=== PATIENT | female | born 1990 | race Hispanic/Latino ===

== ENCOUNTER 2016-05-29 15:41 | Outpatient (CLI) | payer MEDICAID ==
[2016-05-29] MEDS ORDERED: LACTATED RINGERS 500 ML IV ONE (16:48)
[2016-05-29] MEDS ORDERED: VISTARIL PO ONE (17:21)
[2016-05-29] MEDS ORDERED: BRETHINE SUB-Q ONE (19:27)
[2016-05-29] MEDS ORDERED: LACTATED RINGERS 1,000 ML ONE (20:31)
[2016-05-29 21:19] VITALS: BP 110/68
== END 2016-05-29 21:10 | disposition home or self-care (01) ==
LOC: TRG 15:41
PROVIDERS: ATTEND Obstetrics & Gynecology
DX: O47.9 False labor, unspecified (principal); Z3A.00 Weeks of gestation of pregnancy not specified
CPT/HCPCS: 96360; 96372; J3105; J7120; Q0177

== ENCOUNTER 2016-06-03 08:50 | Inpatient (IN) | payer MEDICAID ==
--- NOTE | 2016-06-02 13:03 | History and Physical Report ---
History of Present Illness Date of examination: 06/03/16 Chief complaint: scheduled section History of present illness: Pt is a 25 year old female [place] 06/23/16 at 37w1d who presents for scheduled section per [facility] recommendations to deliver her at 37-38 wks secondary to IUGR. She reports frequent contractions, but denies vaginal bleeding or leakage of fluid. She has had care at [facility] since transfer into care at 22 wks complicated by multiple episodes of contractions, intrauterine growth restriction, aortic insufficiency, depression/anxiety, tobacco abuse, genital herpes, and trichomonas infection that has not finesse adequately treated. She also desires tubal ligation for undesired fertility. She is GBS negative. Past History Past Medical History: heart disease (aortic insufficiency) Past Surgical History: LICSW/uterine surgery (LEEP, laparoscopy), tonsillectomy, section, D&C, other (eye surgery) LICSW History: abnormal PAP smear, herpes, trichomonas (diagnosed 05/26/16; inadequately treated) Family/Genetic History: diabetes, hypertension, stroke Social history: no significant social history, smoking - Obstetrical History Expected Date of Delivery: 06/23/16 Actual Gestation: 37 Week(s) 0 Day(s) : 4 Para: 1 Hx # Term Pregnancies: 1 Number of Pregnancies: 0 Spontaneous Abortions: 2 Induced : 0 Number of Living Children: 1 Medications and Allergies Allergies Allergy/AdvReac Type Severity Reaction Status Date / Time Penicillins Allergy Unknown Verified 12/01/15 20:22 sertraline HCl [From Zoloft] Allergy Unknown Verified 03/08/14 16:03 nifedipine [From Procardia] AdvReac Unknown Verified 04/25/16 22:55 Home Medications Medication Instructions Recorded Confirmed Last Taken Type Ferrous Sulfate [Feosol] 325 mg PO BID 03/31/16 03/31/16 03/28/16 History Omeprazole Magnesium [PriLOSEC Otc] 1 tab PO QDAY 03/31/16 03/31/16 03/28/16 History Vit No.130/Iron/FA 1 each PO QDAY 03/31/16 03/31/16 03/28/16 History [ Tablet] buPROPion SR [Wellbutrin Sr] 150 mg PO BID 03/31/16 03/31/16 03/28/16 History Fluconazole [Diflucan] 150 mg PO QDAY #1 bottle 04/01/16 Unknown Rx NIFEdipine 10 mg PO TID #90 cap 04/01/16 Unknown Rx Review of Systems All systems: negative - Physical Exam Breasts: Positive: deferred Cardiovascular: Regular rate Lungs: Positive: Clear to auscultation Abdomen: Positive: soft (gravid) Uterus: Positive: enlarged (gravid) Extremities: Positive: normal - Obstetrical FHR: auscultation normal Uterine Contraction Monitor Mode: External Uterine Contraction Pattern: Irregular Uterine Tone Measurement Phase: Resting Results All other labs normal. Assessment and Plan A: IUP at 37w1d IUGR Previous x 1 Aortic Insufficiency Genital Herpes Trichomonas Infection- inadequately treated. Tobacco Abuse Depression/Anxiety Undesired Fertility P: Proceed with repeat section, bilateral tubal ligation and other indicated procedures.
[~2016-06-03 08:50] MED LIST: BICITRA PO SCH; CLEOCIN 600 MG/50 mL 50 ML IV NR; GARAMYCIN 0 MG in NACL 0.9% 100 ML IV SCH; GARAMYCIN/NS 80 MG/100 ML 100 ML IV SCH; PEPCID IV SCH; PITOCin/NS 20 UNIT/1000ML DRIP 1,000 ML IV SCH; REGLAN IV SCH
[2016-06-03] MEDS: LACTATED RINGERS 1,000 ML IV NR ×2 (10:14→11:15)
[2016-06-03 10:19] LABS: Basophils % (Auto) 0.2 % (0.0-1.8); Eosinophils % (Auto) 0.9 % (0.0-4.3); Hemoglobin 10.5 gm/dl (10.1-14.3); Mean Corpuscular HGB Conc 34 % (30-34); Mean Corpuscular Hemoglobin 30 pg (28-32); Mean Corpuscular Volume 88 fl (79-97); Platelet Count 248 K/mm3 (140-440); Red Blood Count 3.52 M/mm3 (3.65-5.03); White Blood Count 14.3 K/mm3 (4.5-11.0)
--- NOTE | 2016-06-03 11:37 | Anesthesia Consultation ---
Anesthesia Consult and Med Hx Date of service: 06/03/16 - Airway Anesthetic Teeth Evaluation: Good ROM Head & Neck: Adequate Mental/Hyoid Distance: Adequate Mallampati Class: Class II Intubation Access Assessment: Probably Good - Pre-Operative Health Status ASA Pre-Surgery Classification: ASA2 Proposed Anesthetic Plan: Epidural, Spinal - Pulmonary Hx Smoking: Yes (current every day smoker) Hx Asthma: Yes (LAST ATTACK 3-4 MO AGO) COPD: No Hx Pneumonia: No - Cardiovascular System Hx Hypertension: No Hx Valvular Heart Disease: Yes (aortic insufficiency, cleared by land examiner) - Central Nervous System Hx Seizures: No Hx Psychiatric Problems: Yes (DEPRESSION - TAKES WELLBUTRIN 02/17) - Endocrine Hx Renal Disease: No Hx End Stage Renal Disease: No Hx Hypothyroidism: No Hx Hyperthyroidism: No - Hematic Hx Anemia: No Hx Sickle Cell Disease: No - Other Systems Hx Alcohol Use: Yes (NOT DURING )
--- NOTE | 2016-06-03 11:38 | Anesthesia Day of Surgery ---
Anesthesia Day of Surgery - Day of Surgery Patient Examined: Yes Patient H&P Reviewed: Yes Patient is NPO: Yes Cardiac Clearance: Yes
[2016-06-03] MEDS ORDERED: TORADOL IV PRN (11:43)
[2016-06-03] MEDS ORDERED: ZOFRAN IV PRN (11:43)
[2016-06-03] MEDS ORDERED: NARCAN 0.4 MG/1 ML IV PRN ×2 (11:43→16:19)
[2016-06-03] MEDS ORDERED: SODIUM CHLORIDE FLUSH SYRINGE 10 ML IV SCH ×2 (12:00→16:19)
[2016-06-03] MEDS ORDERED: MORPHINE ONE (12:16)
[2016-06-03] MEDS ORDERED: NACL 0.9% IR ONE (12:17)
[2016-06-03] MEDS ORDERED: WATER FOR IRRIG STERILE IR ONE (12:17)
[2016-06-03] MEDS ORDERED: XYLOCAINE MPF 2% ONE (13:00)
[2016-06-03] MEDS ORDERED: NACL 0.9% 1000 ML 1,000 ML ONE ×2 (13:00→13:44)
[2016-06-03] MEDS ORDERED: NEO SYNEPHRINE/NS Syringe(OR USE) IV ONE (13:01)
[2016-06-03] MEDS ORDERED: VERSED ONE (13:13)
[2016-06-03] MEDS ORDERED: DILAUDID ONE (13:14)
--- NOTE | 2016-06-03 14:14 | Procedure Note ---
OB Delivery Note - Delivery Date of Delivery: 06/03/16 Surgeon: NATE MILLER Estimated blood loss: other (700 mL) - Section Preop diagnosis: repeat , desires sterilization, other (IUGR) Postop diagnosis: same section procedure: section, repeat low transverse, bilateral tubal ligation Disposition: PACU Complications: none Narrative: Please see operative note. - A at 1 minute: 9 at 5 minutes: 9 Gender: Male (2527g (5lb 9oz))
--- NOTE | 2016-06-03 14:21 | Operative Report ---
Operative Report Operative Report: Date of procedure: June 03, 2016 Preoperative diagnosis: 1) IUP at 37w1d 2) IUGR 3) Previous x 1 4) Undesired Fertility Postoperative diagnosis: Same Procedure: 1) Repeat low transverse section 2) Bilateral tubal ligation via Summit method Surgeon: Jacqui Antonio M.D. Anesthesia: Spinal-epidural Findings: 1) Viable male , Apgars 9 and 9, weight 2527g, (5 lb 9 oz) 2) Normal-appearing uterus ovaries and tubes Estimated blood loss: 700 mL IV fluids: 2100 mL Urine output: 200 mL, clear at the end of the procedure Drains: Zaman to gravity Specimens: Placenta to pathology Complications: None. Counts correct x 3. Disposition: Stable to PACU Indication for procedure: Pt is a 25 year old at 37w1d with a h/o IUGR, previous section and undesired fertility who presents for scheduled section. Operation in detail: After the risks, benefits, alternatives and complications were explained to the patient she gave informed consent for the procedure. She was subsequently taken to the operating room where spinal-epidural anesthesia was noted to be adequate. She was subsequently placed in the dorsal supine position with leftward tilt and prepped and draped in a normal sterile fashion. heart tones were noted to be in the 150s prior to incision. A timeout was performed. A Pfannenstiel skin incision was made with the knife and carried down to the layer of the fascia with the Bovie. The fascia was incised in the midline and the fascial incision was extended bilaterally with the Bovie. Attention was then turned to the superior aspect of the incision which was grasped with two Kochers, tented up, and dissected off the rectus muscles. Attention was then turned to the inferior aspect of the incision which was grasped with two Kochers , tented up and dissected off the rectus muscles. The rectus muscles were then in the midline. The peritoneum was then entered bluntly. The peritoneal incision was extended with good visualization of the bladder. The peritoneal incision was then stretched. An Higinio self-retaining retractor was placed for visualization. The bladder blade was placed. The vesicouterine peritoneum was grasped with smooth pickups and incised with Metzenbaum scissors. Metzenbaum scissors were used to extend the incision bilaterally. The bladder flap was then created digitally and the bladder blade was replaced. A transverse incision was made in the lower uterine segment with a knife and extended bilaterally with the bandage scissors. The head was delivered without difficulty followed by shoulders and body. was bulb suctioned at delivery. The cord was clamped and cut and the was handed to NICU staff in attendance. The placenta was then delivered manually. The uterus was then cleared of all clots and debris. The hysterotomy was then reapproximated with 0 Vicryl in a running locked fashion. A second layer of the same suture was used in imbricating fashion. Attention was then turned to the tubal ligation. The right tube was identified and followed to to the fimbriae. The tube was then grasped with a Washburn and ligated via the Summit method. Attention was then turned to the left tube which in a similar fashion was followed down to the fimbriae, grasped with a Washburn, and ligated in via the Summit method. Hemostasis was noted. The hysterotomy was inspected and hemostasis was noted. The gutters were irrigated and cleared of all clots and debris. The hysterotomy was again inspected and noted to be hemostatic. Surgicel was then placed over the hysterotomy. The rectus muscles were then reapproximated with 2-0 Vicryl in an interrupted fashion. The fascia was reapproximated with 0 Vicryl in a running fashion. The subcutaneous tissue was reapproximated with 3-0 Vicryl in a running fashion. The skin was reapproximated with 4-0 Vicryl in a subcuticular fashion. The incision was then covered with steri strips and a pressure dressing. The procedure was then ended. The patient tolerated the procedure well and was taken to the PACU in stable condition. All instrument, lap, and needle counts were correct 3.
[2016-06-03] MEDS: DILAUDID IV PRN ×2 (15:05→18:45)
[2016-06-03] MEDS ORDERED: MILK OF MAGNESIA PO PRN (16:19)
[2016-06-03] MEDS ORDERED: TYLENOL PO PRN (16:19)
[2016-06-03] MEDS ORDERED: MORPHINE IV PRN ×2 (16:19)
[2016-06-03] MEDS ORDERED: TYLENOL PR PRN (16:19)
[2016-06-03] MEDS ORDERED: LANSINOH TP PRN (16:19)
[2016-06-03] MEDS ORDERED: MYLICON PO PRN (16:19)
[2016-06-03] MEDS ORDERED: PITOCin/NS 20 UNIT/1000ML DRIP 1,000 ML IV SCH (16:19)
[2016-06-03] MEDS ORDERED: TUCKS PAD TP PRN (16:19)
[2016-06-03] MEDS: BENADRYL IV PRN ×3 (16:30→21:12)
[2016-06-03] MEDS ORDERED: D5LR 1,000 ML IV SCH (17:00)
[2016-06-03] MEDS: FEOSOL PO SCH (22:19)
[2016-06-04] MEDS: PERCOCET 5/325 PO PRN ×5 (02:00→20:16)
[2016-06-04] MEDS ORDERED: BOOSTRIX IM ONE (06:00)
[2016-06-04 06:33] LABS: Hemoglobin 8.5 gm/dl (10.1-14.3)
--- NOTE | 2016-06-04 09:04 | Progress Note ---
Assessment and Plan O: VSS AF PP H/H: 8.5/25.0 A: Stable POD #1 Anemia P: Abd Binder Iron BID Subjective - Subjective Date of service: 06/04/16 Patient reports: appetite normal, voiding normally, pain well controlled, flatus , ambulating normally : doing well, nursing well Objective - Vital Signs Latest vital signs: Vital Signs Temp Pulse Pulse Pulse Resp BP BP 06/04/16 08:30 97.4 F L 86 20 06/04/16 06:20 98.4 F 87 18 06/04/16 06:00 20 06/04/16 02:00 20 06/04/16 00:00 98 F 80 16 06/03/16 22:23 18 06/03/16 20:20 98.7 F 116 H 18 06/03/16 18:45 18 06/03/16 15:45 98.5 F 89 20 06/03/16 15:25 97.6 F 95 H 13 119/78 06/03/16 15:15 97.6 F 92 H 14 97/68 06/03/16 15:05 12 06/03/16 15:00 90 12 114/64 06/03/16 14:45 92 H 12 106/79 06/03/16 14:30 81 15 108/66 06/03/16 14:25 92 H 14 106/65 06/03/16 14:22 98.1 F 91 H 16 96/55 06/03/16 11:41 114 H 06/03/16 11:36 117 H 06/03/16 11:31 109 H 06/03/16 11:26 109 H 06/03/16 11:21 107 H 06/03/16 11:16 94 H 06/03/16 11:11 108 H 06/03/16 11:06 106 H 06/03/16 11:01 99 H 06/03/16 10:56 123 H 06/03/16 10:51 102 H 06/03/16 10:46 87 06/03/16 10:41 92 H 06/03/16 10:36 127 H 06/03/16 10:31 118 H 06/03/16 10:26 109 H 06/03/16 10:21 123 H 06/03/16 10:16 123 H 06/03/16 10:11 79 06/03/16 10:06 117 H 06/03/16 10:01 105 H 06/03/16 09:56 125 H 06/03/16 09:51 133 H 06/03/16 09:46 116 H 06/03/16 09:39 77 124/77 06/03/16 09:37 127 H 06/03/16 09:36 98.3 F 75 16 113/75 06/03/16 09:34 153 H 113/75 BP Pulse Ox 06/04/16 08:30 104/74 06/04/16 06:20 105/71 06/04/16 06:00 06/04/16 02:00 06/04/16 00:00 106/60 06/03/16 22:23 06/03/16 20:20 114/68 06/03/16 18:45 06/03/16 15:45 140/77 06/03/16 15:25 99 06/03/16 15:15 100 06/03/16 15:05 06/03/16 15:00 99 06/03/16 14:45 98 06/03/16 14:30 100 06/03/16 14:25 100 06/03/16 14:22 100 06/03/16 11:41 97 06/03/16 11:36 98 06/03/16 11:31 98 06/03/16 11:26 98 06/03/16 11:21 100 06/03/16 11:16 98 06/03/16 11:11 98 06/03/16 11:06 98 06/03/16 11:01 98 06/03/16 10:56 98 06/03/16 10:51 98 06/03/16 10:46 98 06/03/16 10:41 99 06/03/16 10:36 97 06/03/16 10:31 97 06/03/16 10:26 98 06/03/16 10:21 97 06/03/16 10:16 97 06/03/16 10:11 97 06/03/16 10:06 97 06/03/16 10:01 96 06/03/16 09:56 96 06/03/16 09:51 97 06/03/16 09:46 97 06/03/16 09:39 06/03/16 09:37 96 01/11/17 09:36 97 06/03/16 09:34 Intake and Output 06/03/16 06/04/16 06/04/16 22:59 06:59 14:59 Intake Total 1190 1240 Output Total 1200 800 Balance -10 440 Intake: IV 950 1000 PITOCin/NS 20 UNIT/1000ML 450 DRIP 1,000 ML @ 125 mls/ hr IV TITR RAFAEL Rx#: [id number] 1,000 ml @ 125 mls/ 500 1000 hr IV DIRECT RAFAEL Rx#: [id number] Intake, Free Water 240 240 Output: Urine 1200 800 Indwelling Catheter 900 800 Other: Total, Output Amount 900 800 # Voids Void 2 Estimated Blood Loss 700 - Exam Breasts: Present: deferred Lungs: Present: Normal air movement Abdomen: Present: normal appearance, soft. Absent: distention, tenderness Vulva: both: normal Uterus: Present: normal, firm. Absent: bogginess, tenderness, fundal height below umbilicus Extremities: Present: normal Incision: Present: normal, dry, intact, dressed - Labs Labs: Abnormal lab results 06/03/16 06/04/16 Range/Units 10:10 06:11 WBC 14.3 H (4.5-11.0) K/mm3 RBC 3.52 L (3.65-5.03) M/mm3 Hgb 8.5 L (10.1-14.3) gm/dl Hct 25.0 L D (30.3-42.9) % RDW 13.0 L (13.2-15.2) % Sumner # 1.0 H (0.0-0.8) K/mm3 Seg Neutrophils % 71.1 H (40.0-70.0) % Seg Neutrophils # 10.2 H (1.8-7.7) K/mm3
[2016-06-04] MEDS ORDERED: PRENATAL VITAMIN PO SCH (10:00)
[2016-06-04] MEDS: MOTRIN PO PRN ×2 (10:55→17:20)
--- NOTE | 2016-06-04 11:01 | Progress Note ---
Subjective Date of service: 06/04/16 Interval history: 1st POD after Patient is in the bed, comfortable. pain is well controlled with pain meds. Ambulated well. No residual neurological deficit. No anesthesia complications Objective - Constitutional Vitals: Vital Signs - 12hr 06/04/16 06/04/16 06/04/16 00:00 02:00 06:00 Temperature 98 F Pulse Rate [ 80 Right From Monitor] Pulse Rate [ Right Radial] Respiratory 16 20 20 Rate Blood Pressure 106/60 [Right Arm] 06/04/16 06/04/16 06:20 08:30 Temperature 98.4 F 97.4 F L Pulse Rate [ 87 Right From Monitor] Pulse Rate [ 86 Right Radial] Respiratory 18 20 Rate Blood Pressure 105/71 104/74 [Right Arm] - Labs CBC & Chem 7: 06/04/16 06:11 Labs: Abnormal lab results 06/04/16 Range/Units 06:11 Hgb 8.5 L (10.1-14.3) gm/dl Hct 25.0 L D (30.3-42.9) %
[2016-06-04] MEDS: FEOSOL PO SCH ×2 (11:42→21:38)
[2016-06-04] MEDS ORDERED: M-M-R II VACCINE SUB-Q ONE (14:23)
[2016-06-05] MEDS: PERCOCET 5/325 PO PRN ×2 (04:34→11:20)
[2016-06-05] MEDS ORDERED: BOOSTRIX IM ONE (06:00)
--- NOTE | 2016-06-05 09:06 | Progress Note ---
Assessment and Plan - Patient Problems (1) Intrauterine growth restriction affecting care of mother Current Visit: Yes Status: Acute Plan to address problem: patient doing well discharge home Subjective - Subjective Date of service: 06/05/16 Interval history: The patient reports the pain is being well controlled. She is tolerating a regular diet. The patient is ambulating without assistance. Patient reports: appetite normal, voiding normally, pain well controlled : doing well Objective - Vital Signs Latest vital signs: Vital Signs Temp Pulse Pulse Resp BP BP 06/05/16 04:34 18 06/05/16 00:00 98.3 F 86 16 106/56 06/04/16 20:16 20 06/04/16 15:58 97.7 F 76 20 98/70 06/04/16 12:08 98.0 F 80 20 118/74 Intake and Output 06/04/16 06/05/16 06/05/16 22:59 06:59 14:59 Intake Total 240 540 Output Total 900 Balance -660 540 Intake: Oral 240 Intake, Free Water 540 Output: Urine 900 Void 900 Other: Total, Intake Amount 240 Total, Output Amount 900 # Voids Void 1 - Exam Abdomen: Present: normal appearance, soft Uterus: Present: normal, firm Incision: Present: normal, dry, intact
--- NOTE | 2016-06-05 09:08 | Discharge Summary ---
Providers - Providers Date of Admission: 06/03/16 08:50 Date of discharge: 06/05/16 Attending physician: ANDREAS RIBEIRO 06/03/16 16:19 Consult to Costume Mistress [CONS] Routine Reason For Exam: Primary care physician: ANDREAS RIBEIRO Hospitalization Reason for admission: section Delivery: Procedure: section, bilateral tubal ligation, repeat low transverse Discharge diagnosis: other (intrauterine growth restriction) [place] baby: male Hospital course: Patient was admitted for a repeat delivery and bilateral tubal ligation for intrauterine growth obstruction. Please see operative note for details of surgery. Her postoperative course was uneventful. Condition at discharge: Good Disposition: DISCHARGED TO HOME OR SELFCARE - Discharge Diagnoses (1) Intrauterine growth restriction affecting care of mother Status: Acute Plan - Discharge Medications Prescriptions: Docusate Sodium [Colace] 100 mg PO BID PRN #60 capsule PRN Reason: Constipation Ibuprofen [Motrin] 800 mg PO Q8HR PRN #60 tablet PRN Reason: Pain Oxycodone HCl/Acetaminophen [Percocet 7.5/325 mg] 1 each PO Q6HR PRN #45 tablet PRN Reason: Pain - Provider Discharge Summary Activity: no sex for 6 weeks, no heavy lifting 4 weeks, no strenuous exercise Diet: routine Instructions: routine Additional instructions: [] Smoking cessation referral if applicable(refer to patient education folder for contact #) [] Refer to [facility] Booklet Call your doctor immediately for: * Fever > 100.5 * Heavy vaginal bleeding ( >1 pad per hour) * Severe persistent headache * Shortness of breath * Reddened, hot, painful area to leg or breast * Drainage or odor from incision. * Keep incision clean and dry at all times and follow doctor's instructions regarding bathing/showering Follow-up in 2 weeks for an incision check
[2016-06-05] MEDS ORDERED: FLUARIX QUAD 2016-2017(36 MOS+) IM ONE (10:00)
[2016-06-05] MEDS ORDERED: PNEUMOVAX 23 IM ONE (10:00)
[2016-06-05 12:00] VITALS: BP 101/66
== END 2016-06-05 12:00 | disposition home or self-care (01) | DRG 765 ==
LOC: APU 08:50 → OB 15:42
PROVIDERS: ADMIT Obstetrics & Gynecology; ATTEND Obstetrics & Gynecology
PROC: 10D00Z1 Extraction of Products of Conception, Low, Open Approach (ICD-10-PCS; principal; 2016-06-03)
PROC: 0UB70ZZ Excision of Bilateral Fallopian Tubes, Open Approach (ICD-10-PCS; 2016-06-03)
PROC: 3E0234Z Introduction of Serum, Toxoid and Vaccine into Muscle, Percutaneous Approach (ICD-10-PCS; 2016-06-05)
DX: O36.5930 Maternal care for other known or suspected poor fetal growth, third trimester, not applicable or unspecified (principal); O99.42 Diseases of the circulatory system complicating childbirth; I35.1 Nonrheumatic aortic (valve) insufficiency; O34.211 Maternal care for low transverse scar from previous cesarean delivery; O99.52 Diseases of the respiratory system complicating childbirth; O90.81 Anemia of the puerperium; O99.344 Other mental disorders complicating childbirth; O99.334 Smoking (tobacco) complicating childbirth; O98.32 Other infections with a predominantly sexual mode of transmission complicating childbirth; A60.00 Herpesviral infection of urogenital system, unspecified; O98.82 Other maternal infectious and parasitic diseases complicating childbirth; A59.9 Trichomoniasis, unspecified; J45.909 Unspecified asthma, uncomplicated; D64.9 Anemia, unspecified; F32.9 Major depressive disorder, single episode, unspecified; F41.9 Anxiety disorder, unspecified; F17.210 Nicotine dependence, cigarettes, uncomplicated; Z3A.37 37 weeks gestation of pregnancy; Z37.0 Single live birth; Z98.890 Other specified postprocedural states; Z88.8 Allergy status to other drugs, medicaments and biological substances; Z88.0 Allergy status to penicillin; Z79.899 Other long term (current) drug therapy; Z23 Encounter for immunization; Z83.3 Family history of diabetes mellitus; Z82.49 Family history of ischemic heart disease and other diseases of the circulatory system; Z82.3 Family history of stroke
CPT/HCPCS: 36415; 85014; 85018; 85025; 86850; 86900; 86901; 88302; 88307; 90471; 90686; 90715; 90732; 99211; 99406; G0463; J1170; J1200; J1580; J1885; J2250; J2270; J2370; J2590; J2765; J7030; J7120; J7121

== ENCOUNTER 2017-02-14 19:53 | Emergency (ER) | payer MEDICAID | END 2017-02-14 20:55 | disposition left against medical advice (07) | LOC: ED 19:53 | DX: R06.02 Shortness of breath (principal); Z53.21 Procedure and treatment not carried out due to patient leaving prior to being seen by health care provider ==